=== PATIENT | female | born 1970 | race Caucasian/White ===

== ENCOUNTER → 2023-03-13 11:57 | Outpatient (CLI) | payer OTHER, SELFPAY ==
--- NOTE | ~2023-03-13 | MR_ITS ---
EXAMINATION: MR shoulder LT wo con DATE: 03/13/2023 12:26 INDICATION: Left shoulder pain TECHNIQUE: Magnetic resonance imaging (MRI) of the left shoulder was performed without intravenous co ntrast. Sequences included axial PD-weighted FS FSE, coronal oblique PD-weighted FS FSE, coronal obli que T2-weighted FS FSE, sagittal PD-weighted FS FSE, and sagittal T1-weighted SE. COMPARISON: None. FINDINGS: Coracoacromial arch: The acromion undersurface is minimally curved in morphology (type I-II). The coracoacromial ligament is normal. Mild acromioclavicular osteoarthritis. Rotator cuff: The supraspinatus, infraspinatus and teres minor tendons are normal. The subscapularis tendon is norm al. Normal rotator cuff muscle bulk and signal. Biceps tendon, glenoid labrum and glenohumeral cartilage: Mild tendinopathy and subtle longitudinal split tear at the extra articular portion of the long head biceps tendon. There is a tear at the superior glenoid labrum with linear increased signal extending laterally into the labral tissue. There is an additional linear tear at the base of the residual stoo l is one that with 8:00-9:00 position of the posterior labrum. Moderate size marginal osteophytes frankie ng the anteroinferior glenoid which replaces portions of the meniscal tissue. There is increased sign al and irregular margins to the remaining meniscal tissue consistent with likely secondary labral deg eneration. Small focus of blisterlike delamination near the bone chondral interface not at the apex o f the humeral head. Additional partial thickness cartilage loss with smooth chondral surface along th e anterior, inferior and posterior periphery of the humeral head. Fluid: Moderate-sized glenohumeral joint effusion with extension of a proportional amount of fluid along the long head biceps tendon sheath. No loose osteochondral bodies. Increased fluid signal in the subacro mial/subdeltoid bursa consistent with minimal bursitis. Bones: Bone alignment is normal. No fracture or pathologic marrow replacing process. IMPRESSION: 1. Mild glenohumeral osteoarthritis with tears at the superior and posterior labrum and degeneration of the anteroinferior labrum. 2. Tendinopathy and longitudinal split tearing of the intra-articular long head biceps tendon. 3. Moderate-sized glenohumeral joint effusion. Reviewed, dictated and finalized at location A. IMPRESSION: 1. Mild glenohumeral osteoarthritis with tears at the superior and posterior la sam and degeneration of the anteroinferior labrum. 2. Tendinopathy and longitudinal split tearing of the intra-articular long head biceps tendon. 3. Moderate-sized glenohumeral joint effusion.
== END ==
PROVIDERS: PCP Internal Medicine; Visit Provider Orthopaedic Surgery
DX: M25.512 Pain in left shoulder (principal); M19.012 Primary osteoarthritis, left shoulder; S43.432A Superior glenoid labrum lesion of left shoulder, initial encounter; S46.112A Strain of muscle, fascia and tendon of long head of biceps, left arm, initial encounter; M25.412 Effusion, left shoulder
CPT/HCPCS: 73221